=== PATIENT | male | born 1995 | race Caucasian/White ===

== ENCOUNTER 2018-06-20 07:49 | Emergency (ER) | payer SELFPAY ==
[~2018-06-20] VITALS: Ht 177.8 cm; Wt 111.1 kg
--- NOTE | 2018-06-20 08:38 | RAD ---
3 view study of the left elbow Clinical indications: Fell last night. Left elbow pain. FINDINGS: A joint effusion is seen. This is due to a nondisplaced fracture of the radial head of the proximal left radius. No dislocation is evident. No osteolytic process is seen. IMPRESSION: Posttraumatic nondisplaced fracture of the radial head. Electronically signed by: Roberto Cary MD (06/20/2018 8:35 AM) [facility]
[2018-06-20] MEDS: HYDROcodone/APAP 5/325MG 1 TAB TABLET PO ONE (08:53)
[2018-06-20] MEDS ORDERED: HYDR-971 PO (08:57)
--- NOTE | 2018-06-20 08:59 | PHYS DOC ---
Past Medical History Past Medical History: Anxiety, Depression Past Surgical History: No Surgical History Alcohol Use: None Drug Use: None Adult General Chief Complaint Chief Complaint: UPPER EXTREMITY INJURY [facility] HPI Patient is a 22 year old male who presents with pain in his left elbow after he fell last night on his friend's deck landing directly on his elbow. He denies loss of consciousness or any other injury. He is unable to fully extend his arm. He has taken ibuprofen with little relief. Review of Systems Review of Systems Constitutional: Denies fever or chills [] Respiratory: Denies cough or shortness of breath [] Cardiovascular: No additional information not addressed in HPI [] GI: Denies abdominal pain, nausea, vomiting, bloody stools or diarrhea [] : Denies dysuria or hematuria [] Musculoskeletal: See history of present illness Integument: Denies rash or skin lesions [] Neurologic: Denies headache, focal weakness or sensory changes [] Endocrine: Denies polyuria or polydipsia [] All other systems were reviewed and found to be within normal limits, except as documented in this note. Current Medications Current Medications Current Medications Medications (Trade) Dose Ordered Sig/Haroldo Start Time Stop Time Status Last Admin Dose Admin Acetaminophen/ Hydrocodone Bitart (Lortab 5/325) 1 tab 1X ONCE 06/20/18 08:30 06/20/18 08:31 DC 06/20/18 08:53 1 TAB Allergies Allergies Allergies Coded Allergies Type Severity Reaction Last Updated Verified No Known Drug Allergies 06/20/18 No Physical Exam Physical Exam Constitutional: Well developed, well nourished, no acute distress, non-toxic appearance. [] Cardiovascular:Heart rate regular rhythm, no murmur [] Lungs & Thorax: Bilateral breath sounds clear to auscultation [] Abdomen: Bowel sounds normal, soft, no tenderness, no masses, no pulsatile masses. [] Skin: Warm, dry, no erythema, no rash. [] Back: No tenderness, no CVA tenderness. [] Extremities: tenderness to left elbow with guarding, no cyanosis, no clubbing, ROM is decreased due to pain, pulses and sensation are intact distal to injury ] Neurologic: Alert and oriented X 3, normal motor function, normal sensory function, no focal deficits noted. [] Psychologic: Affect normal, judgement normal, mood normal. [] Current Patient Data Vital Signs Vital Signs Date Time Temp Pulse Resp B/P (MAP) Pulse Ox O2 Delivery O2 Flow Rate FiO2 06/20/18 09:00 82 20 126/80 (95) 99 Room Air 06/20/18 08:05 98.8 98.8 EKG EKG [] Radiology/Procedures Radiology/Procedures [] PATIENT: JUAN CARLOS CHAVIRA ACCOUNT: [id number] : 1995 LOCATION: ER AGE: 22 SEX: M EXAM STATUS: REG ER ORD. PHYSICIAN: CANDIDO ELKINS APRN REASON: fell last night, LT ELBOW PAIN PROCEDURE: ELBOW LEFT 3V 3 view study of the left elbow Clinical indications: Fell last night. Left elbow pain. FINDINGS: A joint effusion is seen. This is due to a nondisplaced fracture of the radial head of the proximal left radius. No dislocation is evident. No osteolytic process is seen. IMPRESSION: Posttraumatic nondisplaced fracture of the radial head. Electronically signed by: Sarah Cary MD (06/20/2018 8:35 AM) [facility] DICTATED and SIGNED BY: SARAH CARY MD DATE: 06/20/18 0834 Course & Med Decision Making Course & Med Decision Making Pertinent Labs and Imaging studies reviewed. (See chart for details) []The patient was placed in a posterior splint by the emergency room aviation technician. Neuro vascular status was intact post-splint application. Dragon Disclaimer Dragon Disclaimer This electronic medical record was generated, in whole or in part, using a voice recognition dictation system. Departure Departure Impression: Primary Impression: Radial head fracture Disposition: 01 HOME, SELF-CARE Condition: STABLE Referrals: ONEYDA ALTAMIRANO MD (PCP) JEANNE BARR MD Patient Instructions: Elbow Fracture, Radial Head with Rehab[facility] Additional Instructions: You have been prescribed narcotic pain medication. Do not drive or operate heavy machinery while taking this medication. Follow up with orthopedics for further evaluation and treatment of your fracture. Scripts Hydrocodone/Apap 5-325 (NORCO 5-325 TABLET) 1 Each Tablet 1 TAB PO PRN Q6HRS PRN for PAIN, #14 TAB 0 Refills Prov: CANDIDO ELKINS APRN 06/20/18 CANDIDO ELKINS APRN Jun 20, 2018 08:59
[2018-06-20 09:00] VITALS: BP 126/80
== END 2018-06-20 09:18 | disposition home or self-care (01) ==
LOC: ER 07:49
DX: S52.125A Nondisplaced fracture of head of left radius, initial encounter for closed fracture (principal); F41.9 Anxiety disorder, unspecified; F32.9 Major depressive disorder, single episode, unspecified; W18.39XA Other fall on same level, initial encounter; Y93.89 Activity, other specified; Y92.89 Other specified places as the place of occurrence of the external cause; Y99.8 Other external cause status
CPT/HCPCS: 29105; 73080; 99284